=== PATIENT | female | born 1985 | race Caucasian/White ===

== ENCOUNTER → 2016-05-02 | Outpatient (CLI) | payer BC, OTHER ==
[~2016-05-02] MED LIST: FOLI1TAB4 PO; ONDA4TAB7 SL; PREN1CAP7 PO; PROG100C PO; PROG200C PO; ZOLO50TA PO
== END ==
LOC: HPND 09:12
PROVIDERS: ATTEND Obstetrics & Gynecology
DX: O09.291 Supervision of pregnancy with other poor reproductive or obstetric history, first trimester (principal)
CPT/HCPCS: 76801; 76817

== ENCOUNTER 2016-11-18 21:28 | Inpatient (IN) | payer BC, MEDICAID ==
[~2016-11-18] VITALS: Ht 170.2 cm; Wt 94.8 kg
[~2016-11-18 21:28] MED LIST changes: +DIPHTH/TETANUS/ACEL PERTUSSIS (BOOSTER) 0.5 ML VIAL/PFS IM ONE; -FOLI1TAB4 PO; +MEASLES, MUMPS, RUBELLA VACCINE 0.5 ML VIAL SQ ONE; -ONDA4TAB7 SL; -PROG100C PO; -PROG200C PO; +ZANT150T2 PO
[2016-11-18] MEDS ORDERED: LACTATED RINGER'S 1000 ML INJ 1,000 ML IV SCH (22:09)
[2016-11-18] MEDS ORDERED: LACTATED RINGER'S 1000 ML INJ 1,000 ML IV PRN (22:09)
--- NOTE | 2016-11-18 22:09 | PD ---
HPI Chief Complaint Contractions with rupture membranes at 2100 Date Seen: Nov 18, 2016 Time Seen: 22:04 Travel History International Travel<30 Days: No Contact w/Intl Traveler<30Days: No Known Affected Area: No History of Present Illness HPI 31-year-old who is at 38 weeks and 3 days complains of contractions off and on during the day that increased in frequency and intensity this evening associated with rupture membranes with clear fluid at 2100. Patient denies any obstetric complications and she is group B strep negative. Weeks Gestation: 38 Para: 1 : 6 Miscarriage: 2 : 2 History Past Medical History Narrative Medical Depression Medical History: Denies Significant Hx Obstetric History Obstetric History Spontaneous vaginal delivery 2008, 6 lbs. 13 oz. Past Surgical History Surgical History: No Previous Surgery Family History Family History: Negative Social History Alcohol Use: No Tobacco Use: No Substance Abuse: No Allergies-Medications (Allergen,Severity, Reaction): Coded Allergies: penicillin G (Unverified Allergy, Mild, rash, 11/12/16) Home Meds Active Scripts Ranitidine (Zantac) 150 Mg Tab, 150 MG PO BID for Reduce Stomach Acid, #60 TAB 6 Refills Prov:Mariely Major 10/02/16 Sertraline (Zoloft) 50 Mg Tab, 50 MG PO DAILY, #30 TAB 11 Refills Prov:Mariely Major 10/02/16 W/O Vit A W/ Fe Fumar (Citranatal [place]) 27-1-260 Mg Cap, 1 CAP PO DAILY for Nutritional Supplement, #30 BOTTLE 11 Refills Prov:Mariely Major 10/02/16 Review of Systems Except as stated in HPI: all other systems reviewed are Neg Physical Exam Narrative GENERAL: Well-nourished, well-developed patient. SKIN: Warm and dry. HEAD: Normocephalic and atraumatic. EYES: No scleral icterus. No injection or drainage. ENT: No nasal drainage noted. Mucous membranes pink. Airway patent. NECK: Supple, trachea midline. No JVD. CARDIOVASCULAR: Regular rate and rhythm without murmurs, gallops, or rubs. RESPIRATORY: Breath sounds equal bilaterally. No accessory muscle use. ABDOMEN/GI: Abdomen soft, non-tender, bowel sounds present, no rebound, no guarding Gravid to [-38] weeks size Fundal Height: [-] GENITOURINARY: External Genitalia: intact and normal in appearance BUS glands: [Normal-] Cervix: [-Mid position] Dilatation: [5-] Effacement: [-100] Station: [-2] Presentation: [Vertex-] Membranes: [ ruptured clear fluid] Uterine Contractions: [-Every 5] FHT's: Category: [-1] Baseline: [140-] Reactive: [-Moderate] Variability: [-Moderate] Decels: [-Absent] EXTREMITIES: No cyanosis or edema. BACK: Nontender without obvious deformity. No CVA tenderness. NEUROLOGICAL: Awake and alert. Motor and sensory grossly within normal limits. Five out of 5 muscle strength in all muscle groups. Normal speech. Data Data Vital Signs Reviewed: Yes Orders Orders Ob (2e) Additional Admit Info (11/18/16 21:55) Group B Strep: Negative [facility] Medical Record Reviewed: Yes Plan 31-year-old who is at 38 weeks 5 days in active labor with rupture membranes Group B strep negative Desires epidural Diagnosis Diagnosis: Primary Impression: 38 weeks gestation of Additional Impression: Irregular uterine contractions Annita De Jesus MD Nov 18, 2016 22:09
[2016-11-18] MEDS ORDERED: ONDANSETRON HCL 4 MG/2 ML VIAL IV PRN (22:15)
[2016-11-18] MEDS ORDERED: LIDOCAINE HCL 1% 50 ML VIAL INFIL PRN (22:15)
[2016-11-18] MEDS ORDERED: LIDOCAINE HCL 1% 50 ML VIAL I-DERMAL PRN (22:15)
[2016-11-18] MEDS ORDERED: SODIUM CHLORID 0.9% 500 ML INJ 500 ML IV PRN (22:15)
[2016-11-18] MEDS ORDERED: OXYTOCIN 30 UNITS-500ML PREMIX 500 ML IV ONE (22:15)
[2016-11-18] MEDS ORDERED: MINERAL OIL 10 ML VIAL TOPICAL PRN (22:15)
[2016-11-18] MEDS ORDERED: CITRIC ACID-SODIUM CITRATE LIQ 30 ML UDC PO SCH (22:15)
[2016-11-18] MEDS ORDERED: SODIUM CHLOR 0.9% 1000 ML INJ 1,000 ML IV PRN (22:29)
[2016-11-18] MEDS ORDERED: ePHEDrine/NS 25 MG/5 ML SYR ONE (22:49)
[2016-11-18] MEDS ORDERED: fentaNYL 2MCG-BUPIV 0.125% INJ 100 ML ONE (22:49)
[2016-11-18 22:51] LABS: BASOPHIL % 0.3 % (0.0-2.0); EOSINOPHIL % 0.5 % (0.0-4.0); HEMO FLAGS DIFF FINAL; LYMPH % 22.6 % (9.0-44.0); LYMPHOCYTE # 2.1 TH/MM3 (1.0-4.8); MEAN CELL VOLUME 85.5 FL (80.0-100.0); MEAN CORPUSCULAR HEMOGLOBIN 28.9 PG (27.0-34.0); MEAN CORPUSCULAR HGB CONC 33.8 % (32.0-36.0); MONO % 12.4 % (0.0-8.0); NEUT % 64.2 % (16.0-70.0); PLATELET COUNT 162 TH/MM3 (150-450); RED BLOOD COUNT 4.21 MIL/MM3 (4.00-5.30); RED CELL DISTRIBUTION WIDTH 14.3 % (11.6-17.2); WHITE BLOOD COUNT 9.4 TH/MM3 (4.0-11.0)
[2016-11-18 22:55] LABS: BACTERIA, URINE OCC /hpf; BLOOD, URINE LARGE (NEG); COMMENT (UR) CULTURE INDICATED; CULTURE IF INDICATED CULTURE INDICATED; GLUCOSE,URINE NEG (NEG); KETONE, URINE NEG (NEG); MUCUS URINE FEW /lpf (OCC); NITRITE,URINE NEG (NEG); SQUAMOUS EPITHELIAL CELL URINE 38 /hpf (0-5); URINE COLOR YELLOW (YELLW/STRAW)
[2016-11-18 23:05] VITALS: BP 120/67; PULSE 90
[2016-11-18] MEDS ORDERED: KETOROLAC TROMETHAMINE 60 MG/2 ML (IM) VIAL IM ONE (23:10)
[2016-11-18 23:15] VITALS: BP 123/76; PULSE 88; RESP 18
[2016-11-18 23:25] VITALS: RESP 18; TEMP 98
[2016-11-18 23:31] VITALS: BP 107/66; PULSE 108
--- NOTE | 2016-11-18 23:36 | PD.OB.DELI ---
Weeks gestation: 38 Gest age assessed date: Nov 18, 2016 Gest age assessed time: 23:34 Pt started active labor?: Yes Active labor start date: Nov 18, 2016 Active labor start time: 21:00 Medical induction of labor?: No Artificial rupture of membrane: No Anesthesia: None Episiotomy: None Vaginal Delivery: Normal, Spontaneous Presentation: Occiput anterior, Vertex Nuchal Cord: None Delayed cord clamping (45 sec): Yes Infant: Male Delivery date: Nov 18, 2016 Delivery time: 22:57 One Minute : 7 Five Minute : 9 Weight: 3595 Placenta: Spontaneous delivery, Intact, 3 vessel cord Laceration: Vaginal laceration, 2 deg Repair: Chromic running Estimated blood loss: 200cc Annita De Jesus MD Nov 18, 2016 23:36
[2016-11-18 23:45] VITALS: BP 119/71; PULSE 74; RESP 18
[2016-11-18] MEDS ORDERED: WITCH HAZEL 50%/GLYCERIN 12.5% 40 PAD JAR TOPICAL PRN (23:45)
[2016-11-18] MEDS ORDERED: BENZOCAINE 20% TOPICAL SPRAY 60 ML CAN TOPICAL PRN (23:45)
[2016-11-18] MEDS ORDERED: SODIUM CHLORIDE 0.9% FLUSH 10 ML FLUSH IV FLUSH PRN (23:45)
[2016-11-18] MEDS ORDERED: KETOROLAC TROMETHAMINE 30 MG/ML (IVP) VIAL IM SCH (23:45)
[2016-11-18] MEDS ORDERED: OXYTOCIN 30 UNITS-500ML PREMIX 500 ML IV SCH (23:45)
[2016-11-18] MEDS ORDERED: IBUPROFEN 600 MG TAB PO PRN (23:45)
[2016-11-18] MEDS ORDERED: ONDANSETRON ODT 4 MG TAB PO PRN (23:45)
[2016-11-18] MEDS ORDERED: ACETAMINOPHEN 325 MG TAB PO PRN (23:45)
[2016-11-18] MEDS ORDERED: DOCUSATE SODIUM 50 MG/SENNA 8.6 MG TAB PO PRN (23:45)
[2016-11-18] MEDS ORDERED: ALUMINUM/MAGNESIUM/SIMETH 30 ML CUP PO PRN (23:45)
[2016-11-18 23:47] VITALS: RESP 18
[2016-11-19] VITALS: BP 118/65; PULSE 83
[2016-11-19 00:15] VITALS: BP 121/62; PULSE 74
[2016-11-19 02:50] VITALS: BP 110/67; PULSE 75; RESP 20; TEMP 98.6
[2016-11-19 08:09] VITALS: BP 111/73; PULSE 83; RESP 17; TEMP 98.3
--- NOTE | 2016-11-19 08:30 | HHI.OB ---
Subjective Post Day: 1 Remarks Pt seen and examined this morning. day # 1 AFVSS overnight. Decreased lochia. Denies dysuria. No breast tenderness. She is feeding the baby via [breast] and [bottle]. Appetite good. No nausea or vomiting. Patient has not yet had a bowel movement, but stated she had BM during delivery. + Flatus Ambulating well. Denies calf pain or shortness of breath. Otherwise, she is doing well this morning and has no other concerns. Objective Vitals/I&O Vital Signs Date Time Temp Pulse Resp B/P (MAP) Pulse Ox O2 Delivery O2 Flow Rate FiO2 11/19/16 02:50 75 20 110/67 (81) 11/19/16 02:50 98.6 11/19/16 00:15 74 121/62 (81) 11/19/16 00:13 18 11/19/16 00:00 83 11/19/16 00:00 118/65 (82) 11/18/16 23:47 18 11/18/16 23:45 74 18 119/71 (87) 11/18/16 23:31 108 107/66 (80) 11/18/16 23:25 18 11/18/16 23:25 98.0 11/18/16 23:15 18 11/18/16 23:15 88 123/76 (92) 11/18/16 23:05 90 120/67 (84) Objective Remarks GENERAL: Well-nourished, well-developed patient. CARDIOVASCULAR: Regular rate and rhythm without murmurs, gallops, or rubs. RESPIRATORY: Breath sounds equal bilaterally. No accessory muscle use. ABDOMEN/GI: Abdomen soft, non-tender. Fundus: Firm, non-tender at umbilicus. GENITOURINARY: Light to moderate bleeding. EXTREMITIES: No cyanosis or edema, non-tender, without signs of DVT. Medications and IVs Current Medications Medications (Trade) Dose Ordered Sig/Vandana Route Start Time Stop Time Status Last Admin (NS Flush) 2 ml BID IV FLUSH 11/19/16 09:00 (NS Flush) 2 ml UNSCH PRN IV FLUSH 11/18/16 23:45 (Tylenol) 650 mg Q4H PRN PO 11/18/16 23:45 (Motrin) 600 mg Q6H PRN PO 11/18/16 23:45 (Americaine 20% Top Spr) 1 spray Q4H PRN TOPICAL 11/18/16 23:45 (Tucks Pads) 1 applic QID PRN TOPICAL 11/18/16 23:45 (Vivian-Colace) 2 tab Q12H PRN PO 11/18/16 23:45 (Mag-Al Plus Susp Liq) 15 ml Q8H PRN PO 11/18/16 23:45 (Zofran Odt) 4 mg Q6H PRN PO 11/18/16 23:45 Assessment/Plan Problem List: (1) (spontaneous vaginal delivery) ICD Codes: O80 - Encounter for full-term uncomplicated delivery Status: Acute Assessment and Plan 31 y/o female who is PPD # 1 s/p . -Continue routine care. -Percocet and Motrin PRN pain. -Encouraged OOB. Advised pelvic rest for 6 wks. -Re: ctrl, she would like discuss her options at her f/u OB appointment. -Anticipate discharge tomorrow, pending clinical course. reji De Jesus MD Discharge Planning tomorrow, pending clinical course. Zbigniew Louise MD R1 Nov 19, 2016 08:30
[2016-11-19] MEDS ORDERED: IBUP-232 PO (08:47)
[2016-11-19] MEDS ORDERED: SENN1TAB PO (08:47)
--- NOTE | 2016-11-19 08:48 | HHI.DCPOC ---
Discharge Care Plan Diagnosis: (1) (spontaneous vaginal delivery) Report Symptoms to Your Doctor -Temperature above 100.5 degrees -Redness, of incision or excessive or foul smelling drainage -Unusual pain or calf pain -Increased vaginal bleeding -Painful or difficulty urinating -Feelings of extreme sadness or anxiety after 2 weeks Goals to Promote Your Health * To prevent worsening of your condition and complications * To maintain your health at the optimal level Directions to Meet Your Goals Take your medications as prescribed Follow your dietary instruction Follow activity as directed Ensure plenty of rest for recovery Drink fluids for hydration Keep your appointments as scheduled Take your immunizations and boosters as scheduled If your symptoms worsen call your PCP, if no PCP go to Urgent Care Center or Emergency Room Smoking is Dangerous to Your Health. Avoid second hand smoke Call the 24-hour crisis hotline for domestic abuse at Adair Fagan MD R2 Nov 19, 2016 08:48
[2016-11-19] MEDS ORDERED: SODIUM CHLORIDE 0.9% FLUSH 10 ML FLUSH IV FLUSH SCH (09:00)
[2016-11-19 19:30] VITALS: BP 100/66; PULSE 88; RESP 16; TEMP 98.2
[2016-11-20 08:20] VITALS: BP 124/78; PULSE 82; RESP 16; TEMP 98.6
--- NOTE | 2016-11-20 09:38 | HHI.OB ---
Subjective Post Day: 2 Remarks Pt seen and examined this morning. day # 2 AFVSS overnight. Decreased lochia. Denies dysuria. No breast tenderness. She is feeding the baby via breast. Appetite good. No nausea or vomiting. Patient has not yet had a bowel movement, but has had bowel gas. Ambulating well. Denies calf pain or shortness of breath. Otherwise, she is doing well this morning and has no other concerns. Objective Vitals/I&O Vital Signs Date Time Temp Pulse Resp B/P (MAP) Pulse Ox O2 Delivery O2 Flow Rate FiO2 11/19/16 19:30 98.2 16 11/19/16 19:30 88 100/66 (77) Objective Remarks GENERAL: Well-nourished, well-developed patient. CARDIOVASCULAR: Regular rate and rhythm without murmurs, gallops, or rubs. RESPIRATORY: Breath sounds equal bilaterally. No accessory muscle use. ABDOMEN/GI: Abdomen soft, non-tender. Fundus: Firm, non-tender at umbilicus. GENITOURINARY: Light to moderate bleeding. EXTREMITIES: No cyanosis or edema, non-tender, without signs of DVT. Medications and IVs Current Medications Medications (Trade) Dose Ordered Sig/Vandana Route Start Time Stop Time Status Last Admin (NS Flush) 2 ml BID IV FLUSH 11/19/16 09:00 (NS Flush) 2 ml UNSCH PRN IV FLUSH 11/18/16 23:45 (Tylenol) 650 mg Q4H PRN PO 11/18/16 23:45 (Motrin) 600 mg Q6H PRN PO 11/18/16 23:45 (Americaine 20% Top Spr) 1 spray Q4H PRN TOPICAL 11/18/16 23:45 (Tucks Pads) 1 applic QID PRN TOPICAL 11/18/16 23:45 (Vivian-Colace) 2 tab Q12H PRN PO 11/18/16 23:45 (Mag-Al Plus Susp Liq) 15 ml Q8H PRN PO 11/18/16 23:45 (Zofran Odt) 4 mg Q6H PRN PO 11/18/16 23:45 Assessment/Plan Problem List: (1) (spontaneous vaginal delivery) ICD Codes: O80 - Encounter for full-term uncomplicated delivery Status: Acute Assessment and Plan 31 y/o female who is PPD # 2 s/p . -Continue routine care. -Motrin PRN pain. -Encouraged OOB. Advised pelvic rest for 6 wks. -Re: ctrl, she would like discuss her options at her f/u OB appointment. -Patient on isolation for history of MRSA, screen x1 negative -Anticipate discharge today pending clinical course dw MD Lizz Discharge Planning Today pending clinical course. Adair Fagan MD R2 Nov 20, 2016 09:38
[2016-12-04] MEDS ORDERED: ERYT250C PO (13:48)
[2016-12-04] MEDS ORDERED: METR500T10 PO (13:48)
[2016-12-05] MEDS ORDERED: IBUP800T23 PO (14:46)
[2016-12-05] MEDS ORDERED: SULF1TAB23 PO (14:46)
[2016-12-12] MEDS ORDERED: NORG1TAB28 PO (15:19)
[2016-12-12] MEDS ORDERED: FLUC150T PO (15:24)
[2016-12-16] MEDS ORDERED: OFLO0.3D5 EACH EYE (15:55)
== END 2016-11-20 12:00 | disposition home or self-care (01) | DRG 775 ==
LOC: HOBED 21:28 → H2EA 21:58 → H1EA 11-19 01:36
PROVIDERS: ADMIT Obstetrics & Gynecology Obstetrics; ATTEND Obstetrics & Gynecology Obstetrics
PROC: 10E0XZZ Delivery of Products of Conception, External Approach (ICD-10-PCS; principal; 2016-11-18)
PROC: 0KQM0ZZ Repair Perineum Muscle, Open Approach (ICD-10-PCS; 2016-11-18)
DX: O71.4 Obstetric high vaginal laceration alone (principal); Z37.0 Single live birth; Z3A.38 38 weeks gestation of pregnancy
CPT/HCPCS: 59025; 81001; 85025; 86592; 86900; 86901; 87086; 87641; J1885; J2590; J7120